=== PATIENT | female | born 1965 | race Asian ===

== ENCOUNTER 2021-11-11 09:29 | Outpatient (CLI) | payer OTHER ==
[2021-11-11 10:40] LABS: POTASSIUM 3.7 mmol/L (3.6-5.2)
== END 2021-11-11 19:02 | disposition home or self-care (01) ==
LOC: RAD 09:29
PROVIDERS: ATTEND Internal Medicine
DX: Z02.71 Encounter for disability determination (principal); M54.89 Other dorsalgia; M19.90 Unspecified osteoarthritis, unspecified site; I10 Essential (primary) hypertension; E78.00 Pure hypercholesterolemia, unspecified; R22.43 Localized swelling, mass and lump, lower limb, bilateral; R22.33 Localized swelling, mass and lump, upper limb, bilateral; K21.9 Gastro-esophageal reflux disease without esophagitis; K44.9 Diaphragmatic hernia without obstruction or gangrene; F41.8 Other specified anxiety disorders
CPT/HCPCS: 36415; 80053